=== PATIENT | male | born 1990 | race African-American/Black ===

== ENCOUNTER 2016-05-24 08:54 | Emergency (ER) | payer SELFPAY ==
[2016-05-24 09:02] VITALS: BP 153/91; PULSE 85; TEMP 98.7; BMI 36.8
--- NOTE | 2016-05-24 10:36 | DIRPT ---
CLINICAL DATA: Acute left knee pain. EXAM: LEFT KNEE - COMPLETE 4+ VIEW COMPARISON: February 23, 2016. FINDINGS: Status post surgical internal fixation of tibial plateau fracture. Mild suprapatellar joint effusion is noted. No acute fracture or dislocation is noted. No significant joint space narrowing is noted. IMPRESSION: Status post surgical internal fixation of tibial plateau fracture. Mild suprapatellar joint effusion is noted. No other acute abnormality is seen. Electronically Signed By: Osorio Moses Jr, M.D. On: 05/24/2016 10:34
== END 2016-05-24 11:05 | disposition left against medical advice (07) ==
LOC: ED 08:54
DX: M25.562 Pain in left knee (principal); Z53.21 Procedure and treatment not carried out due to patient leaving prior to being seen by health care provider
CPT/HCPCS: 99281